=== PATIENT | female | born 1960 | race African-American/Black ===

== ENCOUNTER 2020-09-01 16:01 | Emergency (ER) | payer MEDICAID, OTHER ==
[~2020-09-01] VITALS: Ht 167.6 cm; Wt 85.0 kg
[2020-09-01] MEDS ORDERED: PREDNISONE 20MG TABLET PO STA (17:28)
[2020-09-01] MEDS ORDERED: ALBUTEROL (0.083%) 2.5MG/3ML NEB HHN STA (17:28)
[2020-09-01] MEDS ORDERED: IPRATROPIUM BROMIDE (0.02%) 0.5MG/2.5ML NEB HHN STA (17:28)
[2020-09-01] MEDS ORDERED: AZITHROMYCIN 500 MG in DEXT 5% WATER 250 ML IV ONE (17:30)
[2020-09-01] MEDS ORDERED: MAGNESIUM 2 G PREMIX 50 ML IV ONE (17:30)
[2020-09-01 18:43] LABS: BASOPHILS % 0.8 % (0.0-2.0); EOSINOPHILS % 2.2 % (0.0-5.0); HEMATOCRIT. 45.1 % (36.0-48.0); LYMPHOCYTES % 17.5 % (20.0-50.0); MEAN CORPUSCULAR HEMOGLOBIN 27.4 pg (28.0-32.0); MEAN CORPUSCULAR VOLUME 82.4 fL (81.0-99.0); MEAN PLATELET VOLUME 9.5 fl (7.4-10.4); MONOCYTES % 7.1 % (2.0-8.0); NEUTROPHILS % 72.4 % (40.0-76.0); PLATELET 277 x1000/uL (130-400); RED BLOOD CELL COUNT 5.48 mill/uL (4.2-5.4)
[2020-09-01 18:46] LABS: CLARITY URINE CLEAR (CLEAR); COLOR URINE YELLOW (YELLOW); KETONES URINE NEGATIVE (NEGATIVE); LEUKOCYTE ESTERASE URINE NEGATIVE (NEGATIVE); NITRITE URINE NEGATIVE (NEGATIVE); OCCULT BLOOD URINE NEGATIVE (NEGATIVE); PROTEIN URINE NEGATIVE (NEGATIVE); SPECIFIC GRAVITY URINE 1.016 (1.005-1.030)
[2020-09-01 18:51] LABS: CHLORIDE 106 mEq/L (98-107)
[2020-09-01 18:53] LABS: INR 0.9
[2020-09-01 23:39] LABS: BG BASE EXCESS 1.4 mmol/L (-2.0-2.0); BG CARBOXYHEMOGLOBIN 2.5 % (0.5-1.5); BG DEOXYHEMOGLOBIN 11.4 % (0.0-5.0); BG FRACTION INSPIRED OXYGEN 21; BG HCO3 ACT 27.7 mmol/L (22.0-26.0); BG METHEMOGLOBIN 0.2 % (0.0-1.5); BG OXYGEN SATURATION 88.3 % (92.0-98.5); BG OXYHEMOGLOBIN 85.9 % (94.0-97.0); BG PCO2 49.9 mmHg (35.0-45.0); BG PH 7.362 (7.350-7.450); BG PO2 54.2 mmHg (75.0-100.0); BG SAMPLE SITE RIGHT RADIAL; BG TOTAL HEMOGLOBIN 14.9 g/dL (12.0-18.0); BG VENT MODE ROOM AIR
[2020-09-02 01:08] VITALS: BP 147/81
== END 2020-09-02 02:43 | disposition short-term general hospital (02) ==
LOC: ER 16:10 → CANBEDREQ 09-02 04:22
DX: J45.909 Unspecified asthma, uncomplicated (principal); N17.9 Acute kidney failure, unspecified; E11.9 Type 2 diabetes mellitus without complications; I10 Essential (primary) hypertension; J44.9 Chronic obstructive pulmonary disease, unspecified; F17.200 Nicotine dependence, unspecified, uncomplicated; Z20.828 Contact with and (suspected) exposure to other viral communicable diseases
CPT/HCPCS: 36415; 36600; 71045; 80053; 81003; 82375; 82805; 83605; 84145; 84484; 85025; 85610; 87635; 93005; 94644; 96365; 96368; 99285; C9803; J0456; J3475; J7060; J7512; Z7610

== ENCOUNTER 2021-09-10 08:43 | Inpatient (IN) | payer MEDICAID, OTHER ==
[~2021-09-10] VITALS: Ht 167.6 cm; Wt 113.4 kg
[2021-09-10] MEDS ORDERED: IPRATROPIUM BROMIDE (0.02%) 0.5MG/2.5ML NEB HHN STA (09:38)
[2021-09-10] MEDS ORDERED: ALBUTEROL (0.083%) 2.5MG/3ML NEB HHN STA (09:38)
[2021-09-10] MEDS ORDERED: PREDNISONE 20MG TABLET PO STA (09:38)
[2021-09-10] MEDS ORDERED: IPRATROPIUM BROMIDE (0.02%) 0.5MG/2.5ML NEB ONE (10:09)
[2021-09-10] MEDS ORDERED: ALBUTEROL (0.083%) 2.5MG/3ML NEB ONE (10:10)
[2021-09-10 10:13] LABS: BASOPHILS % 1.2 % (0.0-2.0); EOSINOPHILS % 3.5 % (0.0-5.0); HEMATOCRIT. 46.2 % (36.0-48.0); HEMOGLOBIN. 15.1 g/dL (12.0-16.0); LYMPHOCYTES % 19.5 % (20.0-50.0); MEAN CORPUSCULAR HEMOGLOBIN 26.9 pg (28.0-32.0); MEAN CORPUSCULAR VOLUME 82.3 fL (81.0-99.0); MEAN PLATELET VOLUME 9.3 fl (7.4-10.4); MONOCYTES % 8.3 % (2.0-8.0); NEUTROPHILS % 67.5 % (40.0-76.0); PLATELET 236 x1000/uL (130-400); RED BLOOD CELL COUNT 5.62 mill/uL (4.2-5.4); RED CELL DISTRIBUTION WIDTH 16.4 % (11.6-14.6)
[2021-09-10 10:19] LABS: CHLORIDE 105 mEq/L (98-107)
[2021-09-10] MEDS ORDERED: ALBUTEROL (0.083%) 2.5MG/3ML NEB HHN SCH (14:00)
[2021-09-10 23:50] VITALS: BP 119/59
[2021-09-11] VITALS: BP 119/59
[2021-09-11] MEDS ORDERED: ALBU6.7H9 INH (00:27)
[2021-09-11] MEDS ORDERED: QUET100T MT (00:28)
[2021-09-11] MEDS ORDERED: ACETAMINOPHEN 650MG/20.3ML UDC PO PRN (01:00)
[2021-09-11] MEDS ORDERED: IPRATROPIUM/ALBUTEROL 0.5-3(2.5)MG/3ML NEB HHN PRN (01:00)
[2021-09-11] MEDS: ACETAMINOPHEN 325MG TABLET PO PRN ×2 (02:00→09:04)
[2021-09-11] MEDS: METHYLPREDNISOLONE SOD SUCC 125 MG/2 ML VIAL IV SCH ×3 (05:30→20:58)
[2021-09-11 08:00] VITALS: BP 154/86
[2021-09-11] MEDS: FAMOTIDINE 20MG TABLET PO SCH ×2 (08:03→20:58)
[2021-09-11] MEDS ORDERED: ENOXAPARIN 30MG/0.3ML SYR SUBCUT SCH (09:00)
[2021-09-11 12:00] VITALS: BP 116/78
[2021-09-11] MEDS: IPRATROPIUM/ALBUTEROL 0.5-3(2.5)MG/3ML NEB HHN SCH ×2 (14:29→20:50)
[2021-09-11 16:00] VITALS: BP 121/62
[2021-09-11 20:00] VITALS: BP 157/86
[2021-09-12 00:39] VITALS: BP 154/72
[2021-09-12] MEDS: ACETAMINOPHEN 325MG TABLET PO PRN ×2 (00:40→08:12)
[2021-09-12] MEDS: IPRATROPIUM/ALBUTEROL 0.5-3(2.5)MG/3ML NEB HHN SCH ×3 (02:27→15:19)
[2021-09-12 04:30] VITALS: BP 119/68
[2021-09-12] MEDS: METHYLPREDNISOLONE SOD SUCC 125 MG/2 ML VIAL IV SCH ×2 (05:19→13:36)
[2021-09-12 08:00] VITALS: BP 141/65
[2021-09-12] MEDS: FAMOTIDINE 20MG TABLET PO SCH (08:12)
[2021-09-12] MEDS ORDERED: PROMETHAZINE/DEXTROMETHORPHAN 6.25-15MG/5ML BOTTLE 120ML PO PRN (10:15)
[2021-09-12 12:00] VITALS: BP 142/85
[2021-09-12 16:00] VITALS: BP 149/80
[2021-09-12] MEDS ORDERED: QUET100T PO (16:01)
[2021-09-12] MEDS ORDERED: AMLO5TAB4 PO (16:02)
[2021-09-12] MEDS ORDERED: GUAI5SYR3 MT (16:04)
[2021-09-12] MEDS ORDERED: PRED10TA PO (16:05)
[2021-09-12 16:07] VITALS: BP 149/88
[2021-09-12] MEDS ORDERED: ALBU90AE INH (16:37)
== END 2021-09-12 20:34 | disposition home or self-care (01) | DRG 140 ==
LOC: ER 08:58 → EDBEDREQ 16:08 → EDBEDREQTM 16:08 → ENRESERV 20:56 → 7EST 23:04
PROVIDERS: ADMIT Internal Medicine; ATTEND Internal Medicine
DX: J44.1 Chronic obstructive pulmonary disease with (acute) exacerbation (principal); E43 Unspecified severe protein-calorie malnutrition; E11.9 Type 2 diabetes mellitus without complications; E66.01 Morbid (severe) obesity due to excess calories; E78.5 Hyperlipidemia, unspecified; G47.30 Sleep apnea, unspecified; Z20.822 Contact with and (suspected) exposure to COVID-19; M19.90 Unspecified osteoarthritis, unspecified site; R04.0 Epistaxis; F99 Mental disorder, not otherwise specified; I10 Essential (primary) hypertension; Z72.0 Tobacco use; Z68.41 Body mass index [BMI] 40.0-44.9, adult
CPT/HCPCS: 36415; 71045; 80053; 83880; 84484; 85025; 87426; 93005; 94640; 99285; J2930; J7512

== ENCOUNTER 2022-06-24 15:10 | Emergency (ER) | payer MEDICAID, OTHER ==
[~2022-06-24] VITALS: Ht 167.6 cm; Wt 139.0 kg
[~2022-06-24 15:10] MED LIST: ALBU6.7H9 INH; ALBU90AE INH; AMLO5TAB4 PO; GUAI5SYR3 MT; PRED10TA PO; QUET100T MT; QUET100T PO
[2022-06-24] MEDS ORDERED: IBUPROFEN 600MG TABLET PO NR ×2 (15:32→17:30)
[2022-06-24] MEDS ORDERED: IBUPROFEN 600MG TABLET PO STA (15:32)
[2022-06-24] MEDS ORDERED: TRANEXAMIC ACID 1,000 MG/10 ML IV ONE (17:45)
[2022-06-24] MEDS ORDERED: ACETAMINOPHEN 325MG TABLET PO ONE (18:00)
[2022-06-24 20:00] LABS: BASOPHILS % 1.2 % (0.0-2.0); EOSINOPHILS % 2.3 % (0.0-5.0); HEMOGLOBIN. 14.8 g/dL (12.0-16.0); LYMPHOCYTES % 25.3 % (20.0-50.0); MEAN CORPUSCULAR HEMOGLOBIN 26.4 pg (28.0-32.0); MEAN CORPUSCULAR VOLUME 80.2 fL (81.0-99.0); MEAN PLATELET VOLUME 9.5 fl (7.4-10.4); MONOCYTES % 7.2 % (2.0-8.0); PLATELET 235 x1000/uL (130-400); RED BLOOD CELL COUNT 5.62 mill/uL (4.2-5.4); RED CELL DISTRIBUTION WIDTH 15.6 % (11.6-14.6)
[2022-06-24 20:08] LABS: CHLORIDE 108 mEq/L (98-107)
[2022-06-24] MEDS ORDERED: ACETAMINOPHEN 325MG TABLET PO NR (20:30)
[2022-06-24 20:31] LABS: CLARITY URINE CLEAR (CLEAR); COLOR URINE YELLOW (YELLOW); KETONES URINE NEGATIVE (NEGATIVE); LEUKOCYTE ESTERASE URINE NEGATIVE (NEGATIVE); NITRITE URINE NEGATIVE (NEGATIVE); OCCULT BLOOD URINE NEGATIVE (NEGATIVE); PH URINE 5.5 (4.5-8.0); PROTEIN URINE NEGATIVE (NEGATIVE); SPECIFIC GRAVITY URINE 1.014 (1.005-1.030); UROBILINOGEN URINE 0.2 E.U./dL (0.2-1.0)
[2022-06-24] MEDS ORDERED: IBUP-2029 MT (23:07)
[2022-06-25 00:05] VITALS: BP 140/78
== END 2022-06-25 00:10 | disposition home or self-care (01) ==
LOC: ER 15:10
DX: R10.11 Right upper quadrant pain (principal); J44.9 Chronic obstructive pulmonary disease, unspecified; E11.9 Type 2 diabetes mellitus without complications; I10 Essential (primary) hypertension; Z79.899 Other long term (current) drug therapy
CPT/HCPCS: 36415; 71045; 74176; 80053; 81003; 85025; 93005; 96374; 99285